=== PATIENT | female | born 1930 | race Caucasian/White ===

== ENCOUNTER → 2018-05-07 | Outpatient (CLI) | payer MEDICARE ==
[~2018-05-07] MED LIST: ALBU8.5H5 IH; ASPI325T17 PO; ATOR10TA9 PO; ATOR80TA PO; CELE50CA PO; CEPH-368 PO; CHOL2000 PO; DORZ10DR26 EACHEYE; HYDR-3307 PO; OMNIPAQUE 350 MG/ML, 100ML BOTTLE ONE; OXYB10TA6 PO; OXYC1TAB7 PO; PANT20TA3 PO; PANT40TA3 PO; PHEN100C PO; POLY17PO5 PO; SENN8.6T98 PO; TRAM50TA2 PO
== END | disposition home or self-care (01) ==
LOC: CFH 11:40
PROVIDERS: ATTEND Physician Assistant
DX: K76.0 Fatty (change of) liver, not elsewhere classified (principal); K56.609 Unspecified intestinal obstruction, unspecified as to partial versus complete obstruction; K76.89 Other specified diseases of liver; E78.2 Mixed hyperlipidemia; E55.9 Vitamin D deficiency, unspecified; K21.9 Gastro-esophageal reflux disease without esophagitis; Z87.39 Personal history of other diseases of the musculoskeletal system and connective tissue; Z90.49 Acquired absence of other specified parts of digestive tract; Z79.899 Other long term (current) drug therapy
CPT/HCPCS: 74177; Q9967

== ENCOUNTER → 2018-07-06 | Outpatient (CLI) | payer MEDICARE, OTHER ==
[~2018-07-06] MED LIST changes: -OMNIPAQUE 350 MG/ML, 100ML BOTTLE ONE; +REGADENOSON 0.4 MG/5 ML SYRINGE ONE
== END | disposition home or self-care (01) ==
LOC: CFH 06-22 07:43
PROVIDERS: ATTEND Nurse Practitioner Primary Care
DX: I21.19 ST elevation (STEMI) myocardial infarction involving other coronary artery of inferior wall (principal); E78.5 Hyperlipidemia, unspecified; Z95.1 Presence of aortocoronary bypass graft
CPT/HCPCS: 78452; 93017; A9502; J2785

== ENCOUNTER → 2018-11-10 | Outpatient (CLI) | payer OTHER ==
[~2018-11-10] MED LIST changes: -REGADENOSON 0.4 MG/5 ML SYRINGE ONE
== END | disposition home or self-care (01) ==
LOC: PETCFH 07:59
PROVIDERS: ATTEND Internal Medicine
DX: K31.84 Gastroparesis (principal)
CPT/HCPCS: 78264; A9541

== ENCOUNTER → 2018-12-08 | Outpatient (CLI) | payer OTHER | END | disposition home or self-care (01) | LOC: CFH 14:13 | PROVIDERS: ATTEND Nurse Practitioner Primary Care | DX: M25.552 Pain in left hip (principal) ==

== ENCOUNTER 2019-04-14 09:45 | Outpatient (CLI) | payer MEDICARE | END 2019-04-14 23:59 | disposition home or self-care (01) | LOC: CFH 09:45 | PROVIDERS: ATTEND Nurse Practitioner Primary Care | DX: M16.12 Unilateral primary osteoarthritis, left hip (principal); M25.752 Osteophyte, left hip; Z98.890 Other specified postprocedural states ==